=== PATIENT | male | born 1960 | race African-American/Black ===

== ENCOUNTER 2022-01-18 11:09 | Emergency (ER) | payer SELFPAY ==
[2022-01-18 11:50] LABS: ALT (SGPT) 23 U/L (8-55); AST (SGOT) 24 U/L (5-34); Albumin 4.3 g/dL (3.5-5.0); Alkaline Phosphatase 60 U/L (40-110); Anion Gap 15 mmol/L (10-20); BUN (Urea Nitrogen) 13 mg/dL (8.4-25.7); Bilirubin, Total 0.4 mg/dL (0.2-1.2); Calc. Creatinine Clearance 0 mL/min (70-130); Calcium 9.2 mg/dL (7.8-10.44); Carbon Dioxide 22 mmol/L (22-29); Chloride 106 mmol/L (98-107); Estimated GFR 72; Globulin 3.6 g/dL (2.4-3.5); Glucose 98 mg/dL (70-105); Lipase 56 U/L (8-78); Magnesium 1.9 mg/dL (1.6-2.6); Potassium 3.6 mmol/L (3.5-5.1); Protein, Total 7.9 g/dL (6.0-8.3); Sodium 139 mmol/L (136-145)
[2022-01-18 11:51] LABS: Acetaminophen Less than 10.0 mcg/mL (10.0-30.0); Alcohol Less than 10 mg/dL (Less than 10); Salicylate Less than 8.0 mg/dL (15.0-30.0)
[2022-01-18 11:56] LABS: Band 6 % (5-11); Eosinophils 1 % (0-10); Hemoglobin 14.3 g/dL (14.0-18.0); Lymphocytes 47 % (21-51); MDiff Complete? YES; Mean Corpuscular HGB CONC 32.6 g/dL (32.0-36.0); Mean Platelet Volume 7.3 fL (7.4-10.4); Monocytes 13 % (0-10); Neutrophil 33 % (42-75); Platelet Count 216 thou/uL (130-400); Platelet Morphology Comment Appears Adequate; RBC Distribution Width 12.7 % (11.5-14.5); RBC Morphology Normal; Red Blood Cell (RBC) Count 4.47 mill/uL (4.70-6.10); White Blood Cell (WBC) Count 4.5 thou/uL (4.8-10.8)
[2022-01-18 12:11] LABS: Bilirubin Small (Negative); Blood, Urine Negative (Negative); Glucose, Urine (Dipstick) 100 mg/dL (Negative); Ketone, Urine Trace mg/dL (Negative); Leukocyte Negative (Negative); Nitrite Negative (Negative); Protein, Urine (Dipstick) Trace mg/dL (Neg-Trace); Urobilinogen 0.2 mg/dL (Less than 2)
[2022-01-18 12:14] LABS: Clarity Hazy (Clear)
[2022-01-18 12:15] LABS: Amphetamine Detected (NotDetected); Cocaine Metabolite Screen Detected (NotDetected); Methamphetamine Detected (NotDetected); Opiate Screen Not Detected (NotDetected); Phencyclidine (PCP) Not Detected (NotDetected); THC/Cannabinoid Screen Detected (NotDetected)
[2022-01-18 12:16] LABS: Barbiturates Screen Not Detected (NotDetected); Benzodiazepine Screen Not Detected (NotDetected); Medtox Control Line Valid? VALID (VALID); Methadone Not Detected (NotDetected); Oxycodone Screen Not Detected (NotDetected); Tricyclic Screen Not Detected (NotDetected)
== END 2022-01-18 13:04 | disposition home or self-care (01) ==
LOC: MADERS 11:09
DX: R41.82 Altered mental status, unspecified (principal); F19.10 Other psychoactive substance abuse, uncomplicated; R29.720 NIHSS score 20; Z87.891 Personal history of nicotine dependence
CPT/HCPCS: 51701; 70450; 71045; 72125; 80053; 80306; 80307; 81003; 83690; 83735; 84484; 85025; 93005; 94760

== ENCOUNTER 2023-01-15 06:46 | Emergency (ER) | payer OTHER ==
[2023-01-15] MEDS ORDERED: Morphine 4 MG/ML VIAL ONE ×2 (07:47→09:25)
[2023-01-15] MEDS ORDERED: Sodium Chloride 0.9% 100 ML ONE (07:48)
[2023-01-15] MEDS ORDERED: Piperacillin/Tazobactam 4.5 GM VIAL ONE (07:48)
[2023-01-15] MEDS ORDERED: Vancomycin 1 GM VIAL ONE (07:48)
[2023-01-15] MEDS ORDERED: Sodium Chloride 0.9% 250 ML 250 ML ONE (07:48)
[2023-01-15 09:59] LABS: ALT (SGPT) 127 U/L (8-55); AST (SGOT) 49 U/L (5-34); Albumin 3.4 g/dL (3.4-4.8); Alkaline Phosphatase 120 U/L (40-110); Anion Gap 15 mmol/L (10-20); BUN (Urea Nitrogen) 11 mg/dL (8.4-25.7); Bilirubin, Total 0.2 mg/dL (0.2-1.2); CK (CPK) 64 U/L (30-200); Calc. Creatinine Clearance 0 mL/min (70-130); Calcium 9.4 mg/dL (7.8-10.44); Carbon Dioxide 24 mmol/L (23-31); Chloride 100 mmol/L (98-107); Estimated GFR 104; Globulin 4.6 g/dL (2.4-3.5); Glucose 90 mg/dL (80-115); Potassium 4.4 mmol/L (3.5-5.1); Sodium 135 mmol/L (136-145)
[2023-01-15 10:00] LABS: Hematocrit 30.9 % (42.0-52.0); Hemoglobin 9.8 g/dL (14.0-18.0); Mean Corpuscular HGB CONC 31.8 g/dL (32.0-36.0); Mean Corpuscular Hemoglobin 30.8 pg (27.0-31.0); Mean Corpuscular Volume 96.8 fl (78.0-98.0); Mean Platelet Volume 5.4 fL (7.4-10.4); Platelet Count 560 10x3/uL (130-400); RBC Distribution Width 13.8 % (11.5-14.5); Red Blood Cell (RBC) Count 3.19 mill/uL (4.70-6.10); White Blood Cell (WBC) Count 13.1 10x3/uL (4.8-10.8)
[2023-01-15 10:01] LABS: Band 2 % (5-11); Lymphocytes 14 % (21-51); MDiff Complete? YES; Monocytes 6 % (0-10); Neutrophil 78 % (42-75)
[2023-01-15 10:02] LABS: Anisocytosis SLIGHT = 6-15 cells (100X) (0-5/hpf); Platelet Adequacy Comment Appears Increased
== END 2023-01-15 10:16 | disposition short-term general hospital (02) ==
LOC: MADERS 06:46
DX: M96.89 Other intraoperative and postprocedural complications and disorders of the musculoskeletal system (principal); I10 Essential (primary) hypertension; Z87.891 Personal history of nicotine dependence; Z79.899 Other long term (current) drug therapy
CPT/HCPCS: 36415; 80053; 82550; 83605; 85025; 87040; 87070; 87077; 87186; 87205; 96365; 96367; 96375; 96376; J2270; J2543; J3370; J3490; J7050

== ENCOUNTER 2023-05-05 16:26 | Emergency (ER) | payer OTHER, SELFPAY ==
[2023-05-05] MEDS ORDERED: Acetaminophen 325 MG TAB ONE (16:48)
== END 2023-05-05 17:39 | disposition home or self-care (01) ==
LOC: MADERS 16:26
DX: S93.402A Sprain of unspecified ligament of left ankle, initial encounter (principal); M72.2 Plantar fascial fibromatosis; W19.XXXA Unspecified fall, initial encounter